=== PATIENT | female | born 1995 | race Hispanic/Latino ===

== ENCOUNTER 2019-11-06 13:19 | Inpatient (IN) | payer OTHER ==
[~2019-11-06] VITALS: Ht 160 cm; Wt 90.7 kg
[2019-11-06] MEDS ORDERED: PRENTAB9 PO (13:57)
[2019-11-06 14:29] VITALS: BP 135/86
[2019-11-06] MEDS ORDERED: LACTATED RINGER'S 1000 ML IV STA (15:11)
--- NOTE | 2019-11-06 15:30 | HPEPDOC ---
Obstetrical History & Physical General Date of Admission Nov 06, 2019 at 14:48 History of Present Illness OB Admission S: Annie is a 24yo at 40+4wks gestation, EDC [id number], presents to LND for labor check for c/o contractions that started at 0530 this AM, progressively becoming stronger and more regular, rating her contraction pain a 7/10. She reports +FM, denies LOF/VB. Blood Type O Positive HIV Negative GBS Negative History complicated by excessive weight gain (45lbs). Elevated 1 hour; 3hr WNL. She denies any medical or surgical history. Chief Complaint: Contractions, term Information Provided By: Patient Age: 24 : 1 Term: 0 Pre-term: 0 Abortions: 0 Livin Care Care: Good Care Dating Final EDC: Nov 02, 2019 Final EDC for Daily Update: Nov 02, 2019 Final EDC by: LMP Antepartum Course Diagnos(e)s Excessive Weight Gain Height (inches): 63 Pre- weight (lbs.): 155 Admission Weight (lbs.): 200 Change in Weight (lbs.): 45 Past Medical History Past Obstetrical History : Past Obstetrical History: Primgravida Past Medical History Medical History Denies Surgical History: Denies/None Family History Significant Family History: No pertinent family hx Social History Marital Status: Family situation: Spouse/partner home Psychosocial History: No pertinent psych hx * Smoker: non-smoker Alcohol: Denies Drugs: denies Imunizations Tdap status: current Influenza Status: current Allergies Coded Allergies: No Known Allergies (Unverified , 11/06/19) Medications Scheduled No.137/Iron/Folic Acd ( Vitamin Tablet) 1 Each Tablet, 1 TAB PO DAILY Physical Examination Physical Examination GENERAL: Alert and oriented times three. ABDOMEN: Gravid and non-tender to touch. FETUS: Is vertex (VTX) by sterile vaginal examination (SVE). EFW 3700g HEART RATE: Regular rate and rhythm. LUNGS: Observed nonlabored breathing. EXTREMITIES: No edema. Vital Signs/I&O O: VSS, afebrile, normotensive FHR: 135, minimal variability, + accels, no decelerations noted. Pt was PO hydrated in triage, but majority of variability remained minimal. CTX: Q 4-6 minutes, regular, moderate by palpation VE: 3.5/90/-2 with BBOW Bloody show present on glove after exam. Vital Signs Date Time Temp Pulse Resp B/P (MAP) Pulse Ox O2 Delivery O2 Flow Rate FiO2 11/06/19 14:29 97.7 120 18 135/86 (102) Laboratory Data 24H LABS Laboratory Tests 2 11/06/19 15:09: Serology Scanned Report Hepatitis B Testing Pertinent Laboratoy Data Blood Type: O+ RBC Antibody Screen: Negative HIV: Negative Hepatitis B: Negative Rapid Plasma Reagin: Nonreactive Rubella: Immune Varicella: Immune Chlamydia/Gonorrhea: Negative Group B Streptococcus: Negative Glucose Tolerance Test: 160 (3 hour WNL) Anatomy Ultrasound Placenta Location: Anterior Normal Anatomy: Yes Placenta Previa: No Vaginal Examination Presentation: Cephalic presentation Assessment Variability: Minimal Tocometer Contractions: Yes Assessment/Plan Assessment A: Annie is a 24yo at 40+4wks gestation being admitted to LND for early labor and Category II FHT d/t minimal variability after hydration intervention. Plan P: Admit to LND; consent for labor, delivery, PP, interventions, pain management options, risk for C/S IV Start, admission labs drawn 500mL LR bolus Expectant management at this time Will augment with no cervical change with pitocin/AROM Can have intermittent monitoring if tracing becomes category I Can have regular diet at this time Close maternal/ monitoring Consult with OB if indicated Anticipate SINGH EUBANKS CNM Nov 06, 2019 15:30
[2019-11-06 15:48] LABS: BASO % 0.2 % (0.0-1.0); EOS # 0.1 10^3/uL (0.0-0.5); EOS % 0.3 % (0.0-3.0); HEMATOCRIT 40.2 % (36.0-47.0); HEMOGLOBIN 13.2 g/dl (12.0-15.5); LYMPH # 2.4 10^3/uL (1.5-5.0); LYMPH % 16.3 % (24.0-44.0); MEAN CORPUSCULAR HEMOGLOBIN 30.8 pg (27.0-33.0); MEAN CORPUSCULAR HGB CONC 32.8 g/dl (32.0-36.5); MEAN CORPUSCULAR VOLUME 93.9 fl (80.0-96.0); MONO # 0.8 10^3/uL (0.0-0.8); MONO % 5.5 % (0.0-5.0); NEUTROPHILS # 11.2 10^3/uL (1.5-8.5); NEUTROPHILS % 77.2 % (36.0-66.0); PLATELET COUNT, AUTOMATED 289 10^3/uL (150-450); RED BLOOD COUNT 4.28 10^6/uL (4.00-5.40); WHITE BLOOD COUNT 14.5 10^3/uL (4.0-10.0)
--- NOTE | 2019-11-06 18:01 | IPNPDOC ---
Text Note Date of Service The patient was seen on 11/06/19. NOTE S: Patient more uncomfortable O: VSS, HR increasing with pain SVE 4/90/-1 AROM clear FHT: cat 1, 150s, reactivity, no decels, ctx q3min A/P: Fetus reassuring. Expt mgt. VS,Fishbone, I+O VS, Fishbone, I+O Laboratory Tests 11/06/19 15:37 Vital Signs Date Time Temp Pulse Resp B/P (MAP) Pulse Ox O2 Delivery O2 Flow Rate FiO2 11/06/19 14:29 97.7 120 18 135/86 (102) Monse Miles MD Nov 06, 2019 18:01
[2019-11-06] MEDS ORDERED: BUTORPHANOL 2 MG/ML INJ (J0595) IV ONE (23:30)
[2019-11-06] MEDS ORDERED: PROMETHAZINE INJ 25 MG/ML VIAL (J2550) IV ONE (23:30)
[2019-11-07] MEDS ORDERED: OXYTOCIN 30 UNITS IN 0.9% NaCl 500ML IV BAG (J2590) As Ordered ONE (01:14)
[2019-11-07] MEDS ORDERED: LIDOCAINE 1% MDV 20ML VIAL As Ordered ONE (02:58)
--- NOTE | 2019-11-07 03:34 | DNPDOC ---
[facility] Delivery Note Delivery Note DATE OF DELIVERY: 11/07/2019 TIME OF : 0257 GENDER: Male. APGARS:9 and 9. WEIGHT:, 3780 grams or 8 pounds 5 ounces. LACERATIONS: 2MLL ANESTHESIA: none. ESTIMATED BLOOD LOSS: 300ml COUNTS: 5 laparotomy sponges accounted for prior to after delivery and 2 sharps removed from delivery field. DELIVERY NOTE: On 11/07/2019 at 0257, Mrs. Fleming a 24-year-old 1 now para 1, had a spontaneous vaginal delivery of viable male infant, Apgars, 9 and 9 and weight 3780 g or 8 lbs. 5 oz. Head was delivered occiput anterior (OA) . Nuchal cord was manually reduced, followed by delivery of the shoulders and corpus. Infant was handed to mom with a good cry. Cord was clamped times two and was cut by the father of baby under my direction. Placenta was then drained and delivered grossly intact. A premixed bag of 500 mL of normal saline with 30 units of Pitocin was then bolused along with uterine massage until the uterus was firm. On inspection, there was a 2MLL that was infused with 1% lidocaine and repaired with 3-0 Vicryl. On reinspection cervix, vagina, perineum was grossly intact and hemostatic. Mom and baby in recovery on stable condition. The couples decided to remain in son, ASHLEY Bird MD. Nov 07, 2019 03:34
[2019-11-07] MEDS ORDERED: OXYTOCIN DRIP 30 UNITS in IV 1 EA IV SCH (03:37)
[2019-11-07] MEDS ORDERED: MOM 30ML SUSPENSION UDC PO PRN (03:45)
[2019-11-07] MEDS ORDERED: IBUPROFEN 600MG TAB PO PRN (03:45)
[2019-11-07] MEDS ORDERED: DOCUSATE SODIUM 100MG CAPSULE PO PRN (03:45)
[2019-11-07] MEDS ORDERED: RHOGAM 300 MCG (1500 IU) INJ (J2790) IM SCH (03:45)
[2019-11-07] MEDS ORDERED: ACETAMINOPHEN TAB 650MG DOSE (2X325MG) PO PRN (03:45)
[2019-11-07] MEDS ORDERED: DIBUCAINE 1% OINTMENT 30GM TOP PRN (03:45)
[2019-11-07] MEDS ORDERED: METHYLERGONOVINE MALEATE 0.2 MG TAB PO PRN (03:45)
[2019-11-07] MEDS ORDERED: ACETAMINOPHEN 500 MG TAB PO PRN (03:45)
[2019-11-07] MEDS ORDERED: MEASLES,MUMPS,RUBELLA VACCINE INJ (MMR-II) (90707) SC SCH (03:45)
[2019-11-07] MEDS ORDERED: LIDOCAINE 1% MDV 20ML VIAL INFIL ONE (03:45)
[2019-11-07] MEDS ORDERED: ANUSOL HC CREAM 30GM TOP PRN (03:45)
[2019-11-07 05:51] VITALS: BP 123/67
[2019-11-07] MEDS ORDERED: INFLUENZA QUADRIVALENT PF VACCINE 0.5ML SYRINGE IM ONE (09:00)
[2019-11-07] MEDS: PRENATAL VITAMINS CHEWABLE TABLET PO SCH (09:36)
[2019-11-07 18:00] VITALS: BP 114/76
[2019-11-07] MEDS: IBUPROFEN 800 MG TAB PO PRN (19:31)
[2019-11-08 06:12] VITALS: BP 116/61
--- NOTE | 2019-11-08 07:23 | IPNPDOC ---
Progress Note Date of Service: Nov 08, 2019 Day#: 1 Progress Note SUBJECT: Patient is a 24-year-old 1 now Para 1 status post uncomplicated spontaneous vaginal delivery with post vaginal laceration and repair, doing well day # 1. She has been ambulating, voiding spontaneously without issue and tolerating regular diet. Breast feeding without issue. Reports lochia is like a normal period. Patient is ambulating well. Reports some cramping with . Has no pain. OBJECTIVE: VITAL SIGNS: Within normal limits, afebrile. GENERAL: No acute distress HEENT: Mucous membranes are moist BREAST: Nontender, no erythema CARDIOVASCULAR: RRR RESPIRATORY: Bilaterally clear ABDOMINAL EXAMINATION: Soft, appropriate tenderness, nondistended, fundus -2 PERINEUM: Intact, minimal lochia EXTREMITIES: no edema, nontender ASSESSMENT: Patient is a 24-year-old 1 now Para 1 status post uncomplicated spontaneous vaginal delivery with post vaginal laceration and repair, doing well day # 1. Vitals within normal limits, afebrile, hemodynamically stable with no evidence of infection. PLAN: 1. Continue care. 2. Tylenol and Motrin for pain. 3. Encourage breast feeding and ambulation. VS, I&O, 24H, Fishbone Vital Signs/I&O Vital Signs Date Time Temp Pulse Resp B/P (MAP) Pulse Ox O2 Delivery O2 Flow Rate FiO2 11/07/19 18:00 98.1 115 18 114/76 (89) 11/07/19 05:51 97 Room Air I&O- Last 24 Hours up to 6 AM 11/07/19 06:00 Output Total 300 ml Balance -300 ml Monse Miles MD Nov 07, 2019 18:40
[2019-11-08] MEDS: PRENATAL VITAMINS CHEWABLE TABLET PO SCH (07:53)
[2019-11-08] MEDS ORDERED: INFLUENZA QUADRIVALENT PF VACCINE 0.5ML SYRINGE IM ONE (09:00)
[2019-11-08 18:23] VITALS: BP 120/63
[2019-11-09 06:00] VITALS: BP 128/73
[2019-11-09] MEDS: IBUPROFEN 800 MG TAB PO PRN (08:17)
[2019-11-09] MEDS: PRENATAL VITAMINS CHEWABLE TABLET PO SCH (08:17)
--- NOTE | 2019-11-19 09:16 | IPN ---
DATE: 11/07/2019 This patient requested circumcision of her male . After discussing risks and benefits of circumcision, the medical and non-medical indications, penile block and aftercare, expressed understanding of penile block, aftercare and bleeding, signed the consent form, all questions were answered, 20 minute discussion. We await clearance by the air cargo specialist supervisor. HERMILO
== END 2019-11-09 11:25 | disposition home or self-care (01) | DRG 807 ==
LOC: M LDO 13:19 → M LDI 14:48 → M OBS 11-07 05:05
PROVIDERS: ADMIT Registered Nurse Maternal Newborn; ATTEND Obstetrics & Gynecology
PROC: 10907ZC Drainage of Amniotic Fluid, Therapeutic from Products of Conception, Via Natural or Artificial Opening (ICD-10-PCS; 2019-11-06)
PROC: 10E0XZZ Delivery of Products of Conception, External Approach (ICD-10-PCS; principal; 2019-11-07)
PROC: 0KQM0ZZ Repair Perineum Muscle, Open Approach (ICD-10-PCS; 2019-11-07)
DX: O48.0 Post-term pregnancy (principal); Z37.0 Single live birth; Z3A.40 40 weeks gestation of pregnancy; O69.82X0 Labor and delivery complicated by other cord entanglement, without compression, not applicable or unspecified; O70.1 Second degree perineal laceration during delivery

== ENCOUNTER → 2020-06-18 | Outpatient (CLI) | payer OTHER ==
[~2020-06-18] MED LIST: PRENTAB9 PO
[2020-06-18 10:40] LABS: BASO % 0.4 % (0.0-1.0); EOS # 0.3 10^3/uL (0.0-0.5); EOS % 2.6 % (0.0-3.0); HEMATOCRIT 44.3 % (36.0-47.0); HEMOGLOBIN 14.8 g/dl (12.0-15.5); LYMPH # 3.3 10^3/uL (1.5-5.0); LYMPH % 29.7 % (24.0-44.0); MEAN CORPUSCULAR HEMOGLOBIN 31.6 pg (27.0-33.0); MEAN CORPUSCULAR HGB CONC 33.4 g/dl (32.0-36.5); MEAN CORPUSCULAR VOLUME 94.5 fl (80.0-96.0); MONO # 0.6 10^3/uL (0.0-0.8); MONO % 5.2 % (2.0-8.0); NEUTROPHILS # 6.8 10^3/uL (1.5-8.5); NEUTROPHILS % 61.8 % (36.0-66.0); PLATELET COUNT, AUTOMATED 345 10^3/uL (150-450); RED BLOOD COUNT 4.69 10^6/uL (4.00-5.40)
[2020-06-18 11:22] LABS: ERYTHROCYTE SEDIMENTATION RATE 5 mm/hr (0-20)
[2020-06-18 11:32] LABS: ALBUMIN 4.1 GM/DL (3.2-5.2); ALT/SGPT 74 U/L (12-78); BILIRUBIN,TOTAL 0.5 MG/DL (0.2-1.0); BLOOD UREA NITROGEN 10 MG/DL (7-18); CALCIUM LEVEL 9.3 MG/DL (8.5-10.1); CARBON DIOXIDE LEVEL 27 MEQ/L (21-32); CHLORIDE LEVEL 112 MEQ/L (98-107); CREATININE FOR GFR 0.61 MG/DL (0.55-1.30); GLOMERULAR FILTRATION RATE > 60.0 (>60); GLUCOSE, FASTING 103 MG/DL (70-100); POTASSIUM SERUM 4.4 MEQ/L (3.5-5.1); RHEUMATOID FACTOR QUANT < 10.0 IU/ML (<15.0); SODIUM LEVEL 143 MEQ/L (136-145); THYROGLOBULIN ANTIBODY < 15.0 U/ML (<60.0); THYROID PEROXIDASE ANTIBODY < 28.0 U/ML (<60.0); THYROXINE (T4) 8.6 UG/DL (4.5-12.0); TOTAL PROTEIN 7.5 GM/DL (6.4-8.2); TOTAL T3 131.6 NG/DL (60.0-181.0)
== END ==
LOC: M LAB 09:20
PROVIDERS: ATTEND Allergy & Immunology Allergy
DX: L50.1 Idiopathic urticaria (principal)